=== PATIENT | female | born 1940 | race Two or more races ===

== ENCOUNTER → 2018-03-09 | Day surgery (SDC) | payer OTHER | END | disposition home or self-care (01) | LOC: ADM 03-05 15:15 → AMB-ENDOS 11:40 | DX: D12.2 Benign neoplasm of ascending colon (principal); K57.30 Diverticulosis of large intestine without perforation or abscess without bleeding; K64.8 Other hemorrhoids ==

== ENCOUNTER 2018-12-14 06:27 | Day surgery (SDC) | payer OTHER | END 2018-12-14 10:15 | disposition home or self-care (01) | LOC: EDSEX 06:27 → AMB-ENDOS 06:27 | DX: D12.0 Benign neoplasm of cecum (principal); D12.2 Benign neoplasm of ascending colon ==

== ENCOUNTER 2020-01-03 08:57 | Day surgery (SDC) | payer OTHER | END 2020-01-03 14:25 | disposition home or self-care (01) | LOC: AMB-ENDOS 08:57 | PROVIDERS: ATTEND Surgery | DX: D12.2 Benign neoplasm of ascending colon (principal); K64.8 Other hemorrhoids; Z20.828 Contact with and (suspected) exposure to other viral communicable diseases ==

== ENCOUNTER 2020-01-20 15:54 | Inpatient (IN) | payer OTHER ==
[~2020-01-20] VITALS: Ht 175.3 cm; Wt 88.5 kg
[2020-03-01] MEDS ORDERED: TAMS0.4C PO (10:56)
[2020-03-01] MEDS ORDERED: CRESTOR20 MG PO (10:56)
[2020-03-01] MEDS ORDERED: AVALIDE 300-121 EACH PO (10:56)
[2020-03-10] MEDS ORDERED: HYOSCYAMINE0.125 M1 SL (14:34)
[2020-03-10] MEDS ORDERED: OXYC1TAB9 PO (14:34)
== END 2020-03-10 15:30 | disposition home or self-care (01) | DRG 331 ==
LOC: SURH 03-08 07:00 → SURG 03-08 07:50 → O/R 03-08 07:50 → SURH 03-08 09:00 → SURG 03-08 17:11
PROVIDERS: ADMIT Surgery; ATTEND Surgery
PROC: 07BC4ZX Excision of Pelvis Lymphatic, Percutaneous Endoscopic Approach, Diagnostic (ICD-10-PCS; 2020-03-08)
PROC: 0DTF4ZZ Resection of Right Large Intestine, Percutaneous Endoscopic Approach (ICD-10-PCS; principal; 2020-03-08 07:00)
DX: D12.2 Benign neoplasm of ascending colon (principal); I10 Essential (primary) hypertension

== ENCOUNTER 2020-02-22 08:17 | Outpatient (CLI) | payer OTHER | END 2020-02-22 08:50 | disposition home or self-care (01) | LOC: LAB 08:17 | PROVIDERS: ATTEND Surgery | DX: D37.4 Neoplasm of uncertain behavior of colon (principal); R19.4 Change in bowel habit; K80.80 Other cholelithiasis without obstruction; D12.0 Benign neoplasm of cecum ==